=== PATIENT | male | born 1995 | race African-American/Black ===

== ENCOUNTER 2022-04-18 17:26 | Emergency (ER) | payer OTHER ==
[2022-04-18] MEDS ORDERED: Acetaminophen 500 MG TAB ONE (17:56)
== END 2022-04-18 18:16 | disposition home or self-care (01) ==
LOC: ERS 17:26
DX: U07.1 COVID-19 (principal)
CPT/HCPCS: 99283

== ENCOUNTER 2025-07-10 12:59 | Emergency (ER) | payer BC, SELFPAY ==
[2025-07-10] MEDS ORDERED: Acetaminophen 500 MG TAB ONE (13:10)
[2025-07-10] MEDS ORDERED: Ibuprofen 800 MG TAB ONE (15:27)
== END 2025-07-10 17:21 | disposition home or self-care (01) ==
LOC: ERS 12:59
DX: J02.0 Streptococcal pharyngitis (principal)
CPT/HCPCS: 36416; 87428; 87430; 99283